=== PATIENT | female | born 1995 | race Caucasian/White ===

== ENCOUNTER → 2020-02-18 | Outpatient (REF) | payer SELFPAY ==
[~2020-02-18] MED LIST: ACET125EL PO; AMOX250REC PO; HYDR1SOL PO; IBUP0.77 PO; LORT5TAB PO
[2020-02-20 13:51] LABS: HEPATITIS B SURFACE ANTIBODY NEGATIVE (POSITIVE)
== END ==
LOC: M LAB REF 16:22
PROVIDERS: ATTEND Physician Assistant Medical
DX: Z00.00 Encounter for general adult medical examination without abnormal findings (principal)

== ENCOUNTER → 2020-06-25 | Outpatient (REF) | payer MEDICARE, OTHER | LOC: M SFHCWAGY 13:34 | PROVIDERS: ATTEND Nurse Practitioner Women's Health | DX: Z12.4 Encounter for screening for malignant neoplasm of cervix (principal); R87.618 Other abnormal cytological findings on specimens from cervix uteri ==